=== PATIENT | male | born 1955 | race African-American/Black ===

== ENCOUNTER 2017-08-31 04:55 | Inpatient (IN) | payer MEDICAID, OTHER ==
[~2017-08-31] VITALS: Ht 180.3 cm; Wt 106.6 kg
[~2017-08-31 04:55] MED LIST: ASPI81TA31 PO; ATOR80TA PO; BIMA2.5D5 EACHEYE; BRIM5DRO3 EACHEYE; DOCU-141 PO; IMDUR PO; ONDA4TAB8 PO; PANT40TA2 PO; SOTA80TA PO; TICA90TA PO
--- NOTE | 2017-08-31 05:00 | NUR ---
Patient walked into ER c/o CP non radiating 06/23. Patient states took x4 doses of nitro spray and ASA prior to arrival with no relief
[2017-08-31] MEDS ORDERED: LEVO500T2 IV (05:05)
[2017-08-31] MEDS ORDERED: ONDA4VIA30 IV (05:05)
[2017-08-31] MEDS ORDERED: DIPH50VI5 IV (05:07)
[2017-08-31] MEDS ORDERED: MORP4CAR IV (05:07)
[2017-08-31] MEDS ORDERED: IV NORMAL SALINE 500 ML BAG IV ONE (05:30)
[2017-08-31] MEDS ORDERED: ONDANSETRON IV *ER 4 MG/2 ML VIAL IV ONE (05:30)
[2017-08-31] MEDS ORDERED: MORPHINE SULFATE 4 MG/1 ML DISP.SYRIN IV ONE (05:30)
[2017-08-31 05:40] LABS: BASOPHILS # (AUTO) 0.1 K/uL (0.0-8.0); BASOPHILS % (AUTO) 2.1 % (0.0-2.0); EOSINOPHILS # (AUTO) 0.1 K/uL (0.0-0.7); EOSINOPHILS % (AUTO) 2.3 % (0.0-7.0); HEMATOCRIT 29.3 % (40-50); HEMOGLOBIN 8.7 G/DL (14.0-18.0); LYMPHOCYTES # (AUTO) 1.3 K/UL (0.8-4.8); LYMPHOCYTES % (AUTO) 23.6 % (20.5-51.5); MEAN CORPUSCULAR HEMOGLOBIN 21.6 UUG (27.0-31.0); MEAN CORPUSCULAR HGB CONC 30 g/dL (32.0-37.0); MEAN CORPUSCULAR VOLUME 72.5 FL (82.0-92.0); MONOCYTES # (AUTO) 0.4 K/UL (0.1-1.30); MONOCYTES % (AUTO) 6.6 % (0.0-11.0); NEUTROPHILS # (AUTO) 3.6 K/UL (1.8-8.9); NEUTROPHILS % (AUTO) 65.4 % (38.5-71.5); PLATELET COUNT (AUTO) 289 K/UL (150-450); RED BLOOD CELL COUNT(AUTO) 4.03 MIL/UL (4.7-6.1); WHITE BLOOD COUNT (AUTO) 5.5 K/UL (4.0-11.2)
[2017-08-31] MEDS ORDERED: ONDANSETRON 4 MG/2 ML VIAL ONE (05:42)
[2017-08-31] MEDS ORDERED: MORPHINE SULFATE 4 MG/1 ML DISP.SYRIN ONE (05:42)
[2017-08-31 05:48] LABS: CREATININE 1.2 mg/dL (0.6-1.3)
[2017-08-31 05:59] LABS: BILIRUBIN,DIRECT 0.1 mg/dL (0.0-0.2); BILIRUBIN,TOTAL 0.2 mg/dL (0.2-1.0); TOTAL PROTEIN, SERUM 6.9 g/dL (6.4-8.2)
--- NOTE | 2017-08-31 06:05 | NUR ---
Patient CP 02/21 at this time
[2017-08-31] MEDS ORDERED: ENOXAPARIN SODIUM 40 MG/0.4 ML DISP.SYRIN SQ SCH (06:15)
[2017-08-31] MEDS ORDERED: ACETAMINOPHEN 325 MG TABLET PO PRN (06:15)
[2017-08-31] MEDS ORDERED: ONDANSETRON 4 MG/2 ML VIAL IV PRN (06:15)
[2017-08-31] MEDS ORDERED: MAGNESIUM HYDROXIDE 30 ML LIQUID UDC PO PRN (06:15)
[2017-08-31] MEDS ORDERED: MORPHINE SULFATE 2 MG/1 ML DISP.SYRIN IV PRN ×2 (06:15→14:15)
[2017-08-31] MEDS ORDERED: HYDROCODONE/APAP 10-325 MG TABLET PO PRN (06:15)
[2017-08-31] MEDS ORDERED: HYDROCODONE/APAP 5-325MG TABLET PO PRN (06:15)
[2017-08-31] MEDS ORDERED: Z GUARD REMEDY PASTE 57 GM TUBE TOP PRN (06:15)
--- NOTE | 2017-08-31 06:15 | NUR ---
Dr [facility] Waiting for Issac PERALTA to call back
--- NOTE | 2017-08-31 06:26 | NUR ---
Patient refused to be transfered to [facility]. ERMD aware
[2017-08-31] MEDS ORDERED: ENOXAPARIN SODIUM 100 MG/ML DISP.SYRIN SQ ONE ×2 (06:30→06:41)
--- NOTE | 2017-08-31 07:44 | NUR ---
[facility]. Per pollo pt can be transfered to them via ambulance. But pt refused to be transfred and admitted to any [place] facility, and aware of financial part of it. Emigdio Nursing chemical processing supervisor aware of Pt's wishes.
--- NOTE | 2017-08-31 07:56 | NUR ---
ER spoke to DR Hernandez regarding pt's admit.
--- NOTE | 2017-08-31 08:19 | NUR ---
Emigdio, nursing used car sales supervisor, notified of pt's admission, and comfirmed.
--- NOTE | 2017-08-31 08:35 | NUR ---
Pt is resting in bed, denies chest pain and SOB.
[2017-08-31] MEDS ORDERED: PANTOPRAZOLE SODIUM 40 MG TABLET.DR PO SCH (09:00)
[2017-08-31] MEDS ORDERED: BRIMONIDINE-P 0.1% OPHTH DROP 5 ML DROPS EACHEYE SCH (09:00)
[2017-08-31] MEDS: BRIMONIDINE 0.2% OPHT DROP 10 ML BOTTLE EACHEYE SCH ×2 (09:19→17:16)
[2017-08-31 09:43] VITALS: BP 124/74
--- NOTE | 2017-08-31 10:30 | NUR ---
Admitted a 62 year old, /chilean from ER with a Diagnosis of chest pain at around 10 am to room 224. Patient alert/oriented x 3, calm and cooperative during interview, on RA, no sob noted, respiration even and unlabored, V/S WNL, c/o chest pain at 4/10, but refused pain medication at this time, Johnna, CHEMISTRY TECHNICIAN , aware. 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 Skin intact, but multiple scars on both arms and lower back, dry skin. Admission assessment done. MD aware of admission with orders done and carried out.
[2017-08-31 11:12] VITALS: BP 128/78
[2017-08-31] MEDS: PANTOPRAZOLE SODIUM 40 MG TABLET.DR PO SCH (13:54)
[2017-08-31] MEDS: ASPIRIN 81 MG TAB.CHEW PO SCH (13:54)
[2017-08-31] MEDS: SOTALOL HCL 80 MG TABLET PO SCH (13:55)
[2017-08-31] MEDS: DOCUSATE SODIUM 100 MG CAPSULE PO SCH (13:55)
[2017-08-31] MEDS: NITROGLYCERIN OINT 1 GM PACKET TP SCH ×3 (14:00→21:22)
[2017-08-31] MEDS: diphenhydrAMINE 50 MG/1 ML VIAL IV PRN ×2 (14:08→21:24)
[2017-08-31 15:05] VITALS: BP 112/67
--- NOTE | 2017-08-31 16:25 | NUR ---
Patient c/o itchiness, requested for benadryl 50mg IVP given at 1408. Sleeping on and off, no distress or chest pain noted at this time. Will continue to monitor.
[2017-08-31] MEDS ORDERED: BIMATOPROST 0.01% OPHT DROP 2.5 ML BOTTLE EACHEYE SCH (18:00)
--- NOTE | 2017-08-31 19:40 | NUR ---
PT RECEIVED IN BED, ASLEEP. EASY TO WAKE. A/OX4. V/S STABLE. IN NO ACUTE DISTRESS. NO C/O PAIN AT THIS TIME. PICC LINE INTACT/PATENT. SAFETY MEASURES IMPLEMENTED. CALL LIGHT WITHIN REACH.
[2017-08-31 20:00] VITALS: BP 92/56
[2017-08-31] MEDS ORDERED: LATANOPROST OPHT DROP 2.5 ML BOTTLE EACHEYE SCH (21:00)
[2017-08-31] MEDS ORDERED: Medication Not On Formulary EA (Atorvastatin Calcium (Lipitor) 80 MG) PO SCH (21:00)
[2017-08-31] MEDS ORDERED: ATORVASTATIN 40 MG TABLET PO SCH (21:00)
[2017-08-31] MEDS: MORPHINE SULFATE 4 MG/1 ML DISP.SYRIN IV PRN (21:23)
[2017-09-01 04:00] VITALS: BP 120/60
--- NOTE | 2017-09-01 06:00 | NUR ---
END OF SHIFT NOTES. PT SLEPT WELL THROUGHOUT SHIFT. IN STABLE CONDITION. PAIN MANAGED. PICC INTACT AND PATENT. SAFETY MAINTAINED. CALL LIGHT WITHIN REACH.
[2017-09-01] MEDS: PANTOPRAZOLE SODIUM 40 MG TABLET.DR PO SCH (06:28)
[2017-09-01] MEDS: NITROGLYCERIN OINT 1 GM PACKET TP SCH ×2 (06:28→14:00)
[2017-09-01 07:51] LABS: CREATININE 1.1 mg/dL (0.6-1.3); MAGNESIUM 2.1 mg/dL (1.8-2.4); PHOSPHOROUS 4.3 mg/dL (2.5-4.9); POTASSIUM 3.9 mmol/L (3.5-5.1)
--- NOTE | 2017-09-01 08:30 | NUR ---
JACQUE RECEIVED BY FACILITIES MAINTENANCE MANAGER, PATIENT NOTED RESTING IN BED, NO SIGNS OF DISTRESS, COMPLAINS OF CHEST PAIN AND REQUESTED PRN MORPHINE AND BENADRYL, 126/71, 63 HEART RATE, CALL LIGHT IN REACH, BED LOCKED AND IN LOWEST POSITION
[2017-09-01 08:46] LABS: BASOPHILS % (AUTO) 0.2 % (0.0-2.0); EOSINOPHILS # (AUTO) 0.1 K/uL (0.0-0.7); EOSINOPHILS % (AUTO) 2.5 % (0.0-7.0); HEMATOCRIT 28.7 % (36.7-47.1); HEMOGLOBIN 8.8 g/dL (12.5-16.3); LYMPHOCYTES # (AUTO) 1.4 K/uL (20.0-40.0); LYMPHOCYTES % (AUTO) 30.8 % (20.5-51.5); MEAN CORPUSCULAR HEMOGLOBIN 21.6 uug (23.8-33.4); MEAN CORPUSCULAR HGB CONC 30 g/dL (32.5-36.3); MEAN CORPUSCULAR VOLUME 70.9 fL (73.0-96.2); MONOCYTES # (AUTO) 0.4 K/uL (2.0-10.0); MONOCYTES % (AUTO) 8.8 % (0.0-11.0); NEUTROPHILS # (AUTO) 2.7 K/uL (1.8-8.9); NEUTROPHILS % (AUTO) 57.7 % (38.5-71.5); PLATELET COUNT (AUTO) 255 K/uL (152-348); RED BLOOD CELL COUNT(AUTO) 4.06 MIL/uL (4.06-5.63); WHITE BLOOD COUNT (AUTO) 4.6 K/uL (3.6-10.2)
[2017-09-01] MEDS: BRIMONIDINE 0.2% OPHT DROP 10 ML BOTTLE EACHEYE SCH (08:47)
[2017-09-01] MEDS: DOCUSATE SODIUM 100 MG CAPSULE PO SCH (08:48)
[2017-09-01] MEDS: ASPIRIN 81 MG TAB.CHEW PO SCH (08:48)
[2017-09-01] MEDS: SOTALOL HCL 80 MG TABLET PO SCH (08:49)
[2017-09-01] MEDS: diphenhydrAMINE 50 MG/1 ML VIAL IV PRN (08:49)
[2017-09-01] MEDS: MORPHINE SULFATE 4 MG/1 ML DISP.SYRIN IV PRN ×2 (08:52→13:43)
[2017-09-01] MEDS ORDERED: ENOXAPARIN SODIUM 40 MG/0.4 ML DISP.SYRIN SQ SCH (09:00)
[2017-09-01 10:00] LABS: EOSINOPHILS % (MANUAL) 1 % (0-8); LYMPHOCYTES % (MANUAL) 29 % (20-40); MONOCYTES % (MANUAL) 8 % (2-10); NEUTROPHILS % (MANUAL) 62 % (42-75)
[2017-09-01 11:06] VITALS: BP 127/71
[2017-09-01 14:00] VITALS: BP 116/68
--- NOTE | 2017-09-01 14:48 | NUR ---
116/68, 73 PULSE, 97% ON ROOM AIR, 18 RESP., 97.7 ORAL TEMP, NO COMPLAINTS OF PAIN AT THIS TIME, PATIENT WALKED TO FRONT LOBBY WHERE PRIVATE CARE NURSE (ITZEL) WILL PICK HIM UP IN PRIVATE CAR, EXIT CARE PROVIDED, DISCHARGE INSTRUCTIONS GIVEN, DOCTOR KIMBER ACEVEDO AWARE OF PATIENTS DISCHARGE, ALL NEEDS MET UPON DISCHARGE.
--- NOTE | 2017-09-01 14:55 | NUR ---
Discharged back home. Patient states that a family friend that is a retired RN will be picking him up and helping him care for himself. No home health needed. No further assistance needed.
== END 2017-09-01 14:30 | disposition home or self-care (01) | DRG 198 ==
LOC: ER 04:58 → TELE 09:08 → MED 19:24
PROVIDERS: ADMIT Internal Medicine; ATTEND Nurse Practitioner Acute Care
DX: I25.119 Atherosclerotic heart disease of native coronary artery with unspecified angina pectoris (principal); I50.43 Acute on chronic combined systolic (congestive) and diastolic (congestive) heart failure; I69.351 Hemiplegia and hemiparesis following cerebral infarction affecting right dominant side; N39.0 Urinary tract infection, site not specified; D63.8 Anemia in other chronic diseases classified elsewhere; E11.9 Type 2 diabetes mellitus without complications; I48.0 Paroxysmal atrial fibrillation; K21.9 Gastro-esophageal reflux disease without esophagitis; I11.0 Hypertensive heart disease with heart failure; I25.5 Ischemic cardiomyopathy; G47.30 Sleep apnea, unspecified; H40.9 Unspecified glaucoma; H54.62 Unqualified visual loss, left eye, normal vision right eye; Z95.1 Presence of aortocoronary bypass graft; I25.2 Old myocardial infarction; Z87.891 Personal history of nicotine dependence; Z95.810 Presence of automatic (implantable) cardiac defibrillator; E78.5 Hyperlipidemia, unspecified; Z79.899 Other long term (current) drug therapy; Z79.82 Long term (current) use of aspirin; Z82.49 Family history of ischemic heart disease and other diseases of the circulatory system; Z80.0 Family history of malignant neoplasm of digestive organs; Z98.61 Coronary angioplasty status; Z88.0 Allergy status to penicillin; Z88.8 Allergy status to other drugs, medicaments and biological substances; Z76.5 Malingerer [conscious simulation]
CPT/HCPCS: 36415; 70030-TC; 71010; 83735; 84100; 85025; 85730; 93005; 93307; A4663; J1200; J1650; J2270; J2405; J7040

== ENCOUNTER 2018-06-06 04:35 | Emergency (ER) | payer MEDICAID, OTHER ==
[~2018-06-06] VITALS: Ht 177.8 cm; Wt 98.0 kg
[~2018-06-06 04:35] MED LIST changes: +DIPH50VI5 IV; -IMDUR PO; +LEVO500T2 IV; +MORP4CAR IV; -ONDA4TAB8 PO; +ONDA4VIA30 IV
--- NOTE | 2018-06-06 05:04 | NUR ---
DR LONDON CONKLIN MD AT BEDSIDE FOR MSE.
--- NOTE | 2018-06-06 05:12 | NUR ---
ER MD ON PHONE WITH [facility]
--- NOTE | 2018-06-06 05:18 | NUR ---
PATIENT AICD INFORMATION: [employer]- [phone] MODEL NUMBER: [id number] SERIAL NUMBER: [id number]
--- NOTE | 2018-06-06 05:23 | NUR ---
SPOKE TO SHANDA CASTILLO FROM [employer], AWAITING CALL BACK FOR UPDATE
--- NOTE | 2018-06-06 05:26 | NUR ---
PER KATERIN PERALTA, OKAMANDA TO ACCESS PATIENTS PICC LINE.
[2018-06-06] MEDS ORDERED: TRAMADOL HCL 50 MG TABLET PO ONE (05:30)
[2018-06-06] MEDS ORDERED: TRAMADOL HCL 50 MG TABLET ONE (05:32)
--- NOTE | 2018-06-06 05:33 | NUR ---
LAB AT BEDSIDE. PATIENT IN BED, NO ACUTE DISTRESS NOTED. VSS
[2018-06-06 05:40] LABS: BASOPHILS % (AUTO) 0.2 % (0.0-2.0); EOSINOPHILS # (AUTO) 0.1 K/uL (0.0-0.7); EOSINOPHILS % (AUTO) 1.1 % (0.0-7.0); HEMATOCRIT 35.5 % (36.7-47.1); HEMOGLOBIN 11.5 g/dL (12.5-16.3); LYMPHOCYTES # (AUTO) 1.1 K/uL (20.0-40.0); MEAN CORPUSCULAR HEMOGLOBIN 25.8 uug (23.8-33.4); MEAN CORPUSCULAR HGB CONC 32 g/dL (32.5-36.3); MEAN CORPUSCULAR VOLUME 79.6 fL (73.0-96.2); MONOCYTES # (AUTO) 0.3 K/uL (2.0-10.0); MONOCYTES % (AUTO) 6.2 % (0.0-11.0); NEUTROPHILS # (AUTO) 3.3 K/uL (1.8-8.9); NEUTROPHILS % (AUTO) 68.5 % (38.5-71.5); PLATELET COUNT (AUTO) 243 K/uL (152-348); RED BLOOD CELL COUNT(AUTO) 4.46 MIL/uL (4.06-5.63); WHITE BLOOD COUNT (AUTO) 4.8 K/uL (3.6-10.2)
--- NOTE | 2018-06-06 05:45 | NUR ---
XRAY AT BEDSIDE.
[2018-06-06 05:50] LABS: CREATININE 1.2 mg/dL (0.6-1.3); POTASSIUM 3.5 mmol/L (3.5-5.1)
[2018-06-06 06:03] LABS: BILIRUBIN,DIRECT 0.1 mg/dL (0.0-0.2); BILIRUBIN,TOTAL 0.4 mg/dL (0.2-1.0); TOTAL PROTEIN, SERUM 7.6 g/dL (6.4-8.2)
--- NOTE | 2018-06-06 06:10 | NUR ---
PATIENT REMAINS IN BED, NO ACUTE DISTRESS NOTED. VSS
--- NOTE | 2018-06-06 06:35 | NUR ---
SPOKE TO [facility] , CALL BACK FOR TRANSPORT PENDING
--- NOTE | 2018-06-06 06:42 | NUR ---
PATIENT STATES HE DOES NOT WANT TO BE TRANSFERRED TO [place] AT THIS TIME. HE WILL LEAVE AGAINST MEDICAL ADVICE FROM [facility], AND WILL FOLLOW UP WHEN HE SEES IT FIT.
--- NOTE | 2018-06-06 06:43 | NUR ---
PATIENT AMBULATED FROM ER WITH STABLE GAIT. NO PERIPHERAL IV WAS PLACED DURING THIS STAY. VSS. ALL BELONGINGS WITH PATIENT.
--- NOTE | 2018-06-06 06:47 | NUR ---
PATIENT REFUSED TO SIGN AMA FORM
== END 2018-06-06 06:48 | disposition left against medical advice (07) ==
LOC: ER 04:42
DX: R55 Syncope and collapse (principal); R07.9 Chest pain, unspecified; I25.10 Atherosclerotic heart disease of native coronary artery without angina pectoris; Z95.810 Presence of automatic (implantable) cardiac defibrillator; Z87.891 Personal history of nicotine dependence; Z88.0 Allergy status to penicillin; Z88.8 Allergy status to other drugs, medicaments and biological substances; Z79.891 Long term (current) use of opiate analgesic; Z79.2 Long term (current) use of antibiotics; Z79.899 Other long term (current) drug therapy
CPT/HCPCS: 36415; 70030-TC; 71045; 83605; 85025; 85730; 87040; 93005; A4663